=== PATIENT | male | born 1965 | race Caucasian/White ===

== ENCOUNTER 2017-05-15 12:22 | Day surgery (SDC) | payer BC ==
[2017-05-13 12:00] LABS: BASOPHILS 0.3 %; BASOPHILS ABSOLUTE 0.03 10/3/uL (0.0-0.16); EOSINOPHILS 1.3 %; EOSINOPHILS ABSOLUTE 0.11 10/3/uL (0.0-0.53); HEMATOCRIT 36.4 % (40.0-51.0); HEMOGLOBIN 12.7 g/dL (13.6-17.8); IMMATURE GRANULOCYTES 0.6 %; IMMATURE GRANULOCYTES ABSOLUTE 0.05 10/3/uL (0.0-0.11); LYMPHOCYTES 19.6 %; LYMPHOCYTES ABSOLUTE 1.69 10/3/uL (0.67-4.30); MEAN CORPUS HGB CONC 34.9 g/dL (32.0-36.0); MEAN CORPUSCULAR HEMOGLOB 31.2 pg (26.0-34.0); MEAN CORPUSCULAR VOLUME 89.4 fL (80-100); MEAN PLATELET VOLUME 11.3 fL (9.2-13.0); MONOCYTES 6.7 %; MONOCYTES ABSOLUTE 0.58 10/3/uL (0.21-1.20); NEUTROPHILS 71.5 %; NEUTROPHILS ABSOLUTE 6.16 10/3/uL (2.02-8.40); PLATELET COUNT 169 10/3/uL (150-400); RBC DISTRIBUTION WIDTH 12.4 % (12.0-16.0); RED CELL COUNT 4.07 10/6/uL (4.7-6.1); WHITE BLOOD CELLS 8.6 10/3/uL (4.5-10.5)
[2017-05-13 12:02] LABS: MANUAL DIFF NO %
[2017-05-13 12:15] LABS: BUN (BLOOD UREA NITROGEN) 17 MG/DL (6-23); CALCIUM, SERUM 9.2 MG/DL (8.5-10.4); CHLORIDE, SERUM 106 MMOL/L (96-112); CO2 (CARBON DIOXIDE) 27 MMOL/L (24-34); CREATININE 1.01 MG/DL (0.70-1.30); GFR AFRICAN AMERICAN 99 ML/MIN (>=60); GFR NON AFRICAN AMERICAN 86 ML/MIN (>=60); GLUCOSE, SERUM 137 MG/DL (60-99); POTASSIUM, SERUM 4.3 MMOL/L (3.5-5.3); SODIUM, SERUM 141 MMOL/L (135-148)
[~2017-05-15] VITALS: Ht 188 cm; Wt 92.1 kg
--- NOTE | ~2017-05-15 | OP ---
Record Of Operation [facility] [address] [place]. [address] NAME: IAM MCGUIRE : 65 STATUS : [facility]#: [id number] AGE: 51 ADM/REG DATE : 05/15/17 MR#: [id number] REPORT SERV DATE: 05/15/17 DICTATED BY: DOTTY WHATLEY DATE: 05/15/17 REPORT STATUS : Draft TRANSCRIBED BY: MODStanley DATE: 05/15/17 DATE OF PROCEDURE: 05/15/2017 PREOPERATIVE DIAGNOSES: 1. History of 6 mm left proximal ureteral stone. 2. History of urinary tract infection associated with the stone. 3. Status post left ureteral stenting. POSTOPERATIVE DIAGNOSES: 1. History of 6 mm left proximal ureteral stone. 2. History of urinary tract infection associated with the stone. 3. Status post left ureteral stenting. PROCEDURE PERFORMED: Cystoscopy, left retrograde pyelogram, left flexible ureterorenoscopy, stone manipulation within the kidney, and laser fragmentation of stone and stent exchange. ANESTHESIA: General. ESTIMATED BLOOD LOSS: 5 mL. INDICATIONS: This is a 51-year-old white male who initially presented about three weeks ago to the emergency room with intractable left flank pain. He was found to have a 6 mm proximal left ureteral stone. He underwent endoscopy and ureteral stenting, and at that time, his urine was found to be quite cloudy, and he has since completed a round of antibiotics. We are now planning definitive endoscopic stone treatment. Risks of infection, bleeding, failure, and need for further surgery have been discussed. PROCEDURE IN DETAIL: The patient was taken to the operating room and underwent a general anesthetic. He was placed in the lithotomy position on the table, and his external genitalia were sterilely prepped and draped. The 22-St Lucian cystoscope sheath with 30-degree lens was inserted under direct vision per urethra with the aid of the video monitor. The anterior urethra looked normal. The prostatic urethra was relatively short with mild lateral lobe occlusion and a mildly elevated bladder neck. The urine in the bladder was somewhat cloudy, and bladder visibility was a bit limited. The mucosa was irritated around the orifice and in the trigone. No mass lesions were noted. The distal end of a stent could be seen exiting the left orifice. The right orifice looked normal. The distal end of the left stent was grasped and pulled out of the urethral meatus. An 0.038 guidewire was easily inserted through it and advanced up into the kidney. A ureteral catheter was advanced over the guidewire, and a retrograde pyelogram was obtained which showed a mildly dilated collecting system. The stone could not specifically be seen. The ureter was not well imaged either. The guidewire was replaced back up into the kidney again under fluoroscopic guidance, and a 9.5-St Lucian ureteral access sheath with obturator was advanced over the guidewire up into the mid ureter. A second guidewire was advanced through the access sheath, and the sheath and obturator were then reinserted over one of the two guidewires leaving the safety wire in place. The flexible ureteroscope was advanced through the access sheath and on up into the mid ureter under direct vision and advanced into the Record Of [address] [address] NAME: IAM MCGUIRE : 65 STATUS : [facility]#: [id number] AGE: 51 ADM/REG DATE : 05/15/17 MR#: [id number] REPORT SERV DATE: 05/15/17 DICTATED BY: DOTTY WHATLEY DATE: 05/15/17 REPORT STATUS : Draft TRANSCRIBED BY: RYAN DATE: 05/15/17 kidney. The ureter looked normal, and no stones were encountered there. Visibility was slightly diminished in the collecting system due to blood and debris. The calyceal anatomy of the kidney was visually inspected. There was a single mobile stone located in the lower pole calyx. This was in a position where it was difficult to access with difficulty. The stone was able to be grasped with an NGage basket and re-deposited in an upper pole calyx. The 200 micron laser fiber was then used to fragment the stone into multiple tiny pieces in the 2 mm range or less. Once I was satisfied that the stone had been adequately fragmented, the remainder of the collecting system was reinspected with no new findings noted, and the ureteroscope was withdrawn under direct vision through the ureter with no significant ureteral findings noted either. The cystoscope was then reinserted over the guidewire, and a 6-St Lucian x 28 cm Contour stent was advanced over the guidewire such that the proximal end of the stent was observed to coil in the pelvis of the kidney under fluoroscopic guidance, and the distal end of the stent was visually observed to coil in the bladder following removal of the guidewire. The bladder was then drained, and all endoscopic apparatus was removed. A string dangle was left connected to the stent and this was taped to the patient's penis. He was then taken to recovery in stable condition. EFRAIN/RYAN Dotyt Whatley M.D. / [id number] CC: Shady Mcintyre SONJA B
[~2017-05-15 12:22] MED LIST: AMB10 PO; AZO STANDARD PO; CIP5 PO; HALF81 PO; LEXAPRO10 PO; LIPITOR20 PO; LOFIB160 PO; NITROSPRAY SL; NORCO1 TA1 PO; PRIN5 PO; PROTONI1 PO; TRESIBA FL100 UNIT/1 SC; VITC500 PO
[2017-05-15 19:15] LABS: CPK 108 U/L (0-200); TROPONIN I <0.02 NG/ML (<0.05)
[2017-05-15 19:18] LABS: CK-MB 2.1 NG/ML
== END 2017-05-15 20:09 | disposition home or self-care (01) ==
LOC: SDC 12:22
PROVIDERS: Anesthesiology; Urology
PROC: 0T778DZ Dilation of Left Ureter with Intraluminal Device, Via Natural or Artificial Opening Endoscopic (ICD-10-PCS; 2017-05-15)
PROC: 0TF48ZZ Fragmentation in Left Kidney Pelvis, Via Natural or Artificial Opening Endoscopic (ICD-10-PCS; principal; 2017-05-15 13:45)
DX: N20.0 Calculus of kidney (principal); I10 Essential (primary) hypertension; E11.9 Type 2 diabetes mellitus without complications; E78.00 Pure hypercholesterolemia, unspecified; Z90.49 Acquired absence of other specified parts of digestive tract; Z96.0 Presence of urogenital implants; Z79.82 Long term (current) use of aspirin; Z79.2 Long term (current) use of antibiotics; Z79.4 Long term (current) use of insulin; Z79.899 Other long term (current) drug therapy; Z98.890 Other specified postprocedural states
CPT/HCPCS: 74420; 80048; 82550; 82553; 82962; 84484; 85025; 88300; 93005; A9270-GY; J2250; J2405; J2710; J3010; Q9967